=== PATIENT | male | born 1995 | race Hispanic/Latino ===

== ENCOUNTER 2017-12-05 08:44 | Outpatient (CLI) | payer OTHER ==
--- NOTE | 2017-12-05 09:27 | XRay Report ---
RIGHT ANKLE RADIOGRAPHS INDICATION: Right ankle pain. COMPARISON: None similar at this institution. FINDINGS: AP, lateral and oblique right ankle radiographs demonstrate intact mortise, malleoli and talar dome contour. Diffuse soft tissue swelling though suspected, greatest laterally. CONCLUSION: Right ankle soft tissue swelling/injury suspected without acute bony abnormality, as described. Please correlate. Thank you for the opportunity to participate in this patient's care.
== END 2017-12-05 08:45 | disposition home or self-care (01) ==
LOC: SPVIMAG 08:44
PROVIDERS: ATTEND Family Medicine
DX: M25.571 Pain in right ankle and joints of right foot (principal)